=== PATIENT | female | born 1945 | race Caucasian/White ===

== ENCOUNTER 2020-08-01 16:10 | Emergency (ER) | payer OTHER, MEDICARE ==
[2020-08-01 16:20] VITALS: BP 175/95; PULSE 108
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
[2020-08-01] MEDS ORDERED: Iopamidol 612 MG/ML 100 ML Bottle IVPUSH ONE (16:30)
[2020-08-01] MEDS ORDERED: Sodium Chloride 0.9% 10 ML Syringe FLUSH PRN (16:30)
--- NOTE | 2020-08-01 17:37 | CT ---
CT chest Technique: Multiple axial sections were obtained from above the lung apices inferiorly through the lung bases. Intravenous contrast was utilized. Reconstructed coronal and sagittal images were obtained. Comparison: No prior chest imaging is available. Findings: Aorta shows mild atherosclerotic calcification without aneurysm. Mild coronary artery calcification is seen. Mediastinum shows no hematoma or adenopathy. No axillary adenopathy is appreciated. Lungs show no acute parenchymal change. Scattered endplate spurring noted throughout spine. No acute osseous finding is appreciated. Impression: 1. Nothing acute is seen on CT study of the chest. Diagnostic code #2 CT abdomen and pelvis Technique: Multiple axial sections were obtained from above the dome of the diaphragm inferiorly through the pubic symphysis. Intravenous contrast was utilized. No oral contrast has been given. Delayed images were also obtained through the abdomen and pelvis. Reconstructed coronal and sagittal images were reviewed. Findings: Several low density lesions are noted within the liver. Largest measures 2.0 cm. These disappear on the delayed images and become isodense to the liver. Spleen appears within normal limits. Right adrenal nodule is seen measuring 1.9 cm. Left adrenal gland shows no nodule. Kidneys show symmetric contrast enhancement. Small low-density finding noted within the right kidney measuring 6 mm in size which does not represent a simple cyst but is otherwise nonspecific. Delayed images shows contrast excretion from both kidneys into the ureters and bladder. No acute renal abnormality is seen. Pancreas shows no discrete abnormality. Spleen appears normal. Aorta shows no aneurysm. No retroperitoneal adenopathy or mesenteric abnormalities are seen. No pelvic mass or adenopathy is seen. No free fluid or inflammatory change is appreciated. Appendix is not visualized with certainty. Bone window settings were reviewed which shows scoliosis and degenerative change scattered throughout the spine. No acute osseous finding is appreciated. Impression: 1. Vague liver lesions becoming isodense on delayed images. Recommend MRI liver study to further evaluate. 2. Small adrenal nodule measuring 1.9 cm which could also be evaluated if liver MRI is performed. 3. Small nonspecific renal lesion measuring 6 mm. This can also be evaluated during MRI. 4. Nothing acute is identified on CT study of the abdomen and pelvis. Diagnostic code #9 Study was dictated in MDT
[2020-08-01] MEDS ORDERED: Potassium Chloride 20 MEQ Tab.ER PO ONE (18:50)
== END 2020-08-01 19:00 | disposition home or self-care (01) ==
LOC: JD.ED 16:10
DX: S50.11XA Contusion of right forearm, initial encounter (principal); S29.9XXA Unspecified injury of thorax, initial encounter; S39.91XA Unspecified injury of abdomen, initial encounter; E87.6 Hypokalemia; I25.10 Atherosclerotic heart disease of native coronary artery without angina pectoris; E78.00 Pure hypercholesterolemia, unspecified; I10 Essential (primary) hypertension; K21.9 Gastro-esophageal reflux disease without esophagitis; F41.9 Anxiety disorder, unspecified; E03.9 Hypothyroidism, unspecified; Z88.6 Allergy status to analgesic agent; Z88.5 Allergy status to narcotic agent; Z79.899 Other long term (current) drug therapy; V59.9XXA Occupant (driver) (passenger) of pick-up truck or van injured in unspecified traffic accident, initial encounter
CPT/HCPCS: 36415; 71260; 74177; 80053; 84484; 85025; 93005; 99285; A9270; Q9967; 93010; 99283

== ENCOUNTER → 2022-08-17 | Day surgery (SDC) | payer MEDICARE, OTHER ==
[~2022-08-17] MED LIST: Acetaminophen/HYDROcodone 325-5 MG Tab ONE; Ketorolac 30 MG/ML SDV ONE; Lactated Ringers 1,000 ML IV ONE; Lactated Ringers 1,000 ML ONE; Lidocaine 1% 4 ML ONE; Morphine 8 MG, EPINEPHrine 0.3 MG, Cefuroxime 750 MG, Ketorolac 30 MG, Sodium Chloride ... SCH; Ondansetron 4 MG/2 ML SDV ONE; Propofol 200 MG/20 ML SDV ONE; Vancomycin 1 GM SDV ONE; ceFAZolin 2 GM Vial ONE; ePHEDrine 50 MG/ML SDV ONE
== END ==
LOC: JD.SDS 06:00
PROVIDERS: ATTEND Orthopaedic Surgery
DX: M16.11 Unilateral primary osteoarthritis, right hip (principal); I10 Essential (primary) hypertension; E78.00 Pure hypercholesterolemia, unspecified; I25.10 Atherosclerotic heart disease of native coronary artery without angina pectoris; E03.4 Atrophy of thyroid (acquired); M85.80 Other specified disorders of bone density and structure, unspecified site; R73.9 Hyperglycemia, unspecified; K21.9 Gastro-esophageal reflux disease without esophagitis; Z79.899 Other long term (current) drug therapy; Z79.890 Hormone replacement therapy; Z79.82 Long term (current) use of aspirin; Z88.8 Allergy status to other drugs, medicaments and biological substances
CPT/HCPCS: 0055T; 27130; 36415; 73501; 86850; 86900; 86901; 97110; 97112; 97161; A9270; J0171; J0690; J0697; J1885; J2270; J2405; J2704; J3370; J7120

== ENCOUNTER 2023-02-01 06:07 | Day surgery (SDC) | payer MEDICARE, OTHER ==
[~2023-02-01 06:07] MED LIST changes: -Acetaminophen/HYDROcodone 325-5 MG Tab ONE; -Ketorolac 30 MG/ML SDV ONE; -Lactated Ringers 1,000 ML IV ONE; -Lactated Ringers 1,000 ML ONE; -Lidocaine 1% 4 ML ONE; +Morphine 8 MG, EPINEPHrine 0.3 MG, Cefuroxime 750 MG, Ketorolac 30 MG, Sodium Chloride ... PRN; -Morphine 8 MG, EPINEPHrine 0.3 MG, Cefuroxime 750 MG, Ketorolac 30 MG, Sodium Chloride ... SCH; -Ondansetron 4 MG/2 ML SDV ONE; -Propofol 200 MG/20 ML SDV ONE; -Vancomycin 1 GM SDV ONE; -ceFAZolin 2 GM Vial ONE; -ePHEDrine 50 MG/ML SDV ONE
[2023-02-01] MEDS ORDERED: Lidocaine 1% 5 ML VIAL ONE (06:22)
[2023-02-01] MEDS ORDERED: fentaNYL 100 MCG/2 ML SDV ONE (06:23)
[2023-02-01] MEDS ORDERED: Ondansetron 4 MG/2 ML SDV ONE (06:23)
[2023-02-01] MEDS ORDERED: Propofol 200 MG/20 ML SDV ONE (06:23)
[2023-02-01] MEDS ORDERED: ceFAZolin 2 GM Vial ONE (06:25)
[2023-02-01] MEDS ORDERED: Tranexamic Acid 1,000 MG/10 ML Vial ONE (06:27)
[2023-02-01] MEDS ORDERED: Vancomycin 1 GM SDV ONE (06:27)
[2023-02-01] MEDS ORDERED: Acetaminophen 325 MG Tab PO ONE (06:32)
[2023-02-01] MEDS ORDERED: Pregabalin 75 MG Cap PO ONE (06:32)
[2023-02-01] MEDS ORDERED: oxyCODONE ER 10 MG TAB.ER PO ONE (06:33)
[2023-02-01] MEDS ORDERED: fentaNYL 100 MCG/2 ML SDV IVPUSH PRN (06:36)
[2023-02-01] MEDS ORDERED: Ondansetron 4 MG/2 ML SDV IVPUSH PRN (06:36)
[2023-02-01] MEDS ORDERED: Bupivacaine 0.25% 10 ML SDV ONE (06:44)
[2023-02-01] MEDS ORDERED: Triamcinolone Acetonide 40 MG/ML 1 ML SDV ONE (06:44)
[2023-02-01] MEDS ORDERED: Lactated Ringers 1,000 ML IV SCH (06:45)
[2023-02-01] MEDS ORDERED: ePHEDrine 50 MG/ML SDV ONE (07:40)
[2023-02-01] MEDS ORDERED: Phenylephrine HCl In 0.9% NaCl 1 MG/10 ML Vial ONE (08:16)
[2023-02-01] MEDS ORDERED: Ketorolac 30 MG/ML SDV ONE (08:26)
[2023-02-01] MEDS ORDERED: Ketorolac 15 MG/ML SDV ONE (08:27)
[2023-02-01] MEDS ORDERED: Lactated Ringers 1,000 ML ONE ×2 (08:41)
[2023-02-01] MEDS: Acetaminophen/HYDROcodone 325-5 MG Tab PO PRN ×2 (10:30→12:24)
[2023-02-01 15:13] VITALS: BP 122/74; PULSE 71
== END 2023-02-01 14:29 | disposition home or self-care (01) ==
LOC: JD.SDS 06:07
PROVIDERS: ATTEND Orthopaedic Surgery
DX: M16.12 Unilateral primary osteoarthritis, left hip (principal); M17.12 Unilateral primary osteoarthritis, left knee; I10 Essential (primary) hypertension; Z87.891 Personal history of nicotine dependence; Z88.5 Allergy status to narcotic agent; F41.9 Anxiety disorder, unspecified; Z79.899 Other long term (current) drug therapy; E03.9 Hypothyroidism, unspecified; K21.9 Gastro-esophageal reflux disease without esophagitis; E78.00 Pure hypercholesterolemia, unspecified; I25.10 Atherosclerotic heart disease of native coronary artery without angina pectoris; Z88.6 Allergy status to analgesic agent
CPT/HCPCS: 20610; 27130; 36415; 73501; 80048; 86850; 86900; 86901; 97116; 97161; A9270; C1713; C1776; J0171; J0690; J0697; J1885; J2270; J2405; J2704; J3010; J3301; J3370; J3490; J7120; 01214; 99100

== ENCOUNTER 2023-08-12 06:04 | Day surgery (SDC) | payer MEDICARE, OTHER ==
[~2023-08-12 06:04] MED LIST changes: +Dexamethasone 4 MG/ML 5 ML MDV ONE; +Dexmedetomidine 200 MCG/2 ML SDV ONE; +EPINEPHrine 1 MG/ML SDV ONE; +Lactated Ringers 1,000 ML IV SCH; +Lidocaine 1% 5 ML VIAL ONE; +Midazolam 1 MG/ML 2 ML SDV ONE; -Morphine 8 MG, EPINEPHrine 0.3 MG, Cefuroxime 750 MG, Ketorolac 30 MG, Sodium Chloride ... PRN; +Ondansetron 4 MG/2 ML SDV ONE; +Propofol 200 MG/20 ML SDV ONE; +Rocuronium 50 MG/5 ML Vial ONE; +Ropivacaine 0.5% 5 MG/ML 30 ML SDV ONE; +Sodium Chloride 0.9% 10 ML Syringe FLUSH PRN; +Sodium Chloride 0.9% 10 ML Syringe FLUSH SCH; +ceFAZolin 2 GM Vial ONE; +fentaNYL 250 MCG/5 ML SDV ONE
[2023-08-12] MEDS ORDERED: Vancomycin 1 GM SDV ONE (06:26)
[2023-08-12] MEDS ORDERED: Tranexamic Acid 1,000 MG/10 ML Vial ONE (06:26)
[2023-08-12] MEDS ORDERED: Bupivacaine 0.25% 10 ML SDV ONE (07:04)
[2023-08-12] MEDS ORDERED: Triamcinolone Acetonide 40 MG/ML 1 ML SDV ONE (07:04)
[2023-08-12] MEDS ORDERED: Ondansetron 4 MG/2 ML SDV IVPUSH PRN (07:19)
[2023-08-12] MEDS ORDERED: fentaNYL 100 MCG/2 ML SDV IVPUSH PRN (07:19)
[2023-08-12] MEDS ORDERED: HYDROmorphone 0.5 MG/0.5 ML Syringe IVPUSH PRN (07:19)
[2023-08-12] MEDS ORDERED: Lactated Ringers 1,000 ML ONE (07:40)
[2023-08-12] MEDS ORDERED: ePHEDrine 50 MG/ML SDV ONE (07:41)
[2023-08-12] MEDS ORDERED: Ketorolac 15 MG/ML SDV ONE (08:45)
[2023-08-12] MEDS ORDERED: Acetaminophen/HYDROcodone 325-5 MG Tab PO PRN (10:34)
[2023-08-12] MEDS ORDERED: Lactated Ringers 1,000 ML IV SCH (10:45)
[2023-08-12 14:03] VITALS: BP 145/83; PULSE 91
== END 2023-08-12 13:30 | disposition home or self-care (01) ==
LOC: JD.SDS 06:04
PROVIDERS: ATTEND Orthopaedic Surgery
DX: M19.012 Primary osteoarthritis, left shoulder (principal); M17.12 Unilateral primary osteoarthritis, left knee; G89.29 Other chronic pain; E78.00 Pure hypercholesterolemia, unspecified; I25.10 Atherosclerotic heart disease of native coronary artery without angina pectoris; E03.4 Atrophy of thyroid (acquired); R73.9 Hyperglycemia, unspecified; M85.89 Other specified disorders of bone density and structure, multiple sites; K21.9 Gastro-esophageal reflux disease without esophagitis; F41.9 Anxiety disorder, unspecified; Z85.3 Personal history of malignant neoplasm of breast; Z79.890 Hormone replacement therapy; Z79.899 Other long term (current) drug therapy; Z79.2 Long term (current) use of antibiotics; Z79.82 Long term (current) use of aspirin; Z88.8 Allergy status to other drugs, medicaments and biological substances; Z87.891 Personal history of nicotine dependence; Z88.5 Allergy status to narcotic agent
CPT/HCPCS: 20610; 23472; 64415; 76000; 97110; 97161; C1713; C1769; C1776; J0171; J0690; J1100; J1885; J2250; J2405; J2704; J2795; J3010; J3301; J3370; J3490; J7030; J7120; 01638; 99100

== ENCOUNTER → 2024-09-28 | Day surgery (SDC) | payer MEDICARE, OTHER ==
[~2024-09-28] MED LIST changes: -Dexmedetomidine 200 MCG/2 ML SDV ONE; -EPINEPHrine 1 MG/ML SDV ONE; +HYDROmorphone 0.5 MG/0.5 ML Syringe IVPUSH PRN; -Lactated Ringers 1,000 ML IV SCH; +Lactated Ringers 1,000 ML ONE; +Lidocaine 1% 4 ML ONE; -Lidocaine 1% 5 ML VIAL ONE; -Midazolam 1 MG/ML 2 ML SDV ONE; +Ondansetron 4 MG/2 ML SDV IVPUSH PRN; +dexmedeTOMIDine HCl 200 MCG/2 ML SDV ONE; +ePHEDrine 50 MG/ML SDV ONE; +fentaNYL 100 MCG/2 ML SDV ONE; -fentaNYL 250 MCG/5 ML SDV ONE
[2024-09-28] MEDS: Lactated Ringers 1,000 ML IV SCH (07:00)
[2024-09-28] MEDS: Vancomycin 1 GM SDV ONE (09:44)
[2024-09-28] MEDS: Tranexamic Acid 1,000 MG/10 ML Vial ONE (09:44)
[2024-09-28] MEDS: Bupivacaine 0.25% 10 ML SDV ONE (10:00)
[2024-09-28] MEDS: Triamcinolone Acetonide 40 MG/ML 1 ML SDV ONE (10:00)
[2024-09-28] MEDS: fentaNYL 100 MCG/2 ML SDV IVPUSH PRN (10:48)
[2024-09-28] MEDS: Acetaminophen/HYDROcodone 325-5 MG Tab PO PRN (12:24)
[2024-09-28 15:22] VITALS: PULSE 96
[2024-09-28 15:23] VITALS: BP 126/79
== END | disposition home or self-care (01) ==
LOC: JD.SDS 06:30
PROVIDERS: ATTEND Orthopaedic Surgery
DX: M19.011 Primary osteoarthritis, right shoulder (principal); I11.0 Hypertensive heart disease with heart failure; I50.32 Chronic diastolic (congestive) heart failure; I25.10 Atherosclerotic heart disease of native coronary artery without angina pectoris; E78.00 Pure hypercholesterolemia, unspecified; K21.9 Gastro-esophageal reflux disease without esophagitis; E03.9 Hypothyroidism, unspecified; Z87.891 Personal history of nicotine dependence; Z79.890 Hormone replacement therapy; Z79.899 Other long term (current) drug therapy
CPT/HCPCS: 76000; 76000-26; 97110-GP; 97116-GP; 97161-GP; A9270-GY; J0665; J0690; J1100; J2405; J2704; J2795; J3010; J3301; J3490; J7120